=== PATIENT | male | born 1965 | race Caucasian/White ===

== ENCOUNTER → 2017-03-28 | Outpatient (CLI) | payer BC ==
[~2017-03-28] MED LIST: AMLO10TA2 PO; LISI40TA PO
[2017-03-28 08:59] LABS: ASPARTATE AMINO TRANSFERASE 16 U/L (15-37); BLOOD UREA NITROGEN 18 mg/dL (7-18)
== END | disposition home or self-care (01) ==
LOC: STAR 07:31
PROVIDERS: ATTEND Surgery
DX: Z01.818 Encounter for other preprocedural examination (principal); I51.7 Cardiomegaly; R00.1 Bradycardia, unspecified
CPT/HCPCS: 36415; 80053; 82378; 85025; 93005

== ENCOUNTER → 2017-04-09 | Outpatient (CLI) | payer BC ==
[~2017-04-09] MED LIST changes: +OXYC-302 PO
== END | disposition home or self-care (01) ==
LOC: WOUND 08:09
PROVIDERS: ATTEND Internal Medicine
DX: T81.89XD Other complications of procedures, not elsewhere classified, subsequent encounter (principal); E78.5 Hyperlipidemia, unspecified; E78.00 Pure hypercholesterolemia, unspecified; I51.7 Cardiomegaly; I10 Essential (primary) hypertension; Z87.891 Personal history of nicotine dependence; Z85.048 Personal history of other malignant neoplasm of rectum, rectosigmoid junction, and anus; Z72.89 Other problems related to lifestyle; Y83.8 Other surgical procedures as the cause of abnormal reaction of the patient, or of later complication, without mention of misadventure at the time of the procedure
CPT/HCPCS: 99214

== ENCOUNTER 2017-04-11 07:30 | Inpatient (IN) | payer BC, OTHER ==
[~2017-04-11] VITALS: Ht 185.4 cm; Wt 83.9 kg
[~2017-04-11 07:30] MED LIST changes: -OXYC-302 PO
[2017-04-11] MEDS ORDERED: LACTATED RINGERS 1,000 ML IV SCH (07:58)
[2017-04-11] MEDS ORDERED: FENTANYL PF 100 MCG/2ML ONE ×4 (10:25→14:24)
[2017-04-11] MEDS ORDERED: MIDAZOLAM 1 MG/ML, 2ML ONE (10:25)
[2017-04-11] MEDS ORDERED: cloniDINE/PF 100 MCG/ML, 10 ML ONE (10:30)
[2017-04-11] MEDS ORDERED: BUPIVACAINE/PF 0.5% ONE (10:35)
[2017-04-11] MEDS ORDERED: INDOCYANINE GREEN 25 MG VIAL ONE (10:59)
[2017-04-11] MEDS ORDERED: DEXAMETHASONE 4 MG/ML, 5ML ONE (11:31)
[2017-04-11] MEDS ORDERED: ROCURONIUM 10 MG/ML ONE ×2 (11:31)
[2017-04-11] MEDS ORDERED: ONDANSETRON 2MG/ML, 2ML ONE ×2 (11:31→15:20)
[2017-04-11] MEDS ORDERED: CEFOTETAN 2 GM ONE (11:31)
[2017-04-11] MEDS ORDERED: PROPOFOL 10 MG/ML, 20ML ONE (11:31)
[2017-04-11] MEDS ORDERED: ONDANSETRON 2MG/ML, 2ML IVPush PRN (13:30)
[2017-04-11] MEDS ORDERED: ACETAMINOPHEN 325 MG TABLET PO PRN (13:30)
[2017-04-11] MEDS ORDERED: MEPERIDINE/PF 25MG/0.5ML IVPush PRN (13:30)
[2017-04-11] MEDS ORDERED: hydrALAzine 20 MG/ML, 1ML IV PRN (13:30)
[2017-04-11] MEDS ORDERED: OXYcodone 5 MG/5 ML ORAL.SOL UDC PO PRN (13:30)
[2017-04-11] MEDS ORDERED: LABETALOL 5MG/ML, 20ML IV PRN (13:30)
[2017-04-11] MEDS ORDERED: PROMETHAZINE 25 MG/ML, 1ML IV PRN (13:30)
[2017-04-11] MEDS ORDERED: HYDROmorphone 1 MG/ML, 1ML ONE ×2 (14:24→15:20)
[2017-04-11] MEDS: FENTANYL PF 100 MCG/2ML IV PRN ×2 (14:25→14:40)
[2017-04-11] MEDS: HYDROmorphone 1 MG/ML, 1ML IV PRN ×5 (14:35→18:17)
[2017-04-11] MEDS ORDERED: ACETAMINOPHEN 500 MG TABLET PO PRN (16:30)
[2017-04-11] MEDS ORDERED: DIPHENHYDRAMINE 25 MG CAPSULE PO PRN (16:30)
[2017-04-11] MEDS ORDERED: D5%-0.45% NACL 1,000 ML IV SCH (16:30)
[2017-04-11] MEDS ORDERED: LORazepam 1MG TABLET PO PRN (16:30)
[2017-04-11] MEDS ORDERED: LORazepam 2 MG/ML, 1ML IV PRN (16:30)
[2017-04-11] MEDS ORDERED: DIPHENHYDRAMINE 50 MG/ML, 1ML IV PRN (16:30)
[2017-04-11] MEDS ORDERED: ONDANSETRON 2MG/ML, 2ML IV PRN (16:30)
[2017-04-11] MEDS: OXYcodone 5 MG/5 ML ORAL.SOL UDC PO PRN ×2 (19:38→20:38)
[2017-04-11] MEDS: FAMOTIDINE 20 MG TABLET PO SCH (19:38)
[2017-04-11 19:59] VITALS: BP 139/89
[2017-04-11] MEDS: IBUPROFEN 600 MG TABLET PO SCH (20:39)
[2017-04-11] MEDS: CEFOTETAN PMX 2GM/50ML 50 ML IVPB SCH (23:50)
[2017-04-11] MEDS: ACETAMINOPHEN 500 MG TABLET PO SCH (23:50)
[2017-04-12 00:02] VITALS: BP 140/83
[2017-04-12] MEDS: OXYcodone 5 MG/5 ML ORAL.SOL UDC PO PRN ×4 (02:45→18:22)
[2017-04-12 04:10] VITALS: BP 138/87
[2017-04-12 05:40] LABS: HEMATOCRIT 44.9 % (39.2-51.8); HEMOGLOBIN 15.2 g/dL (13.7-18.0); WHITE BLOOD COUNT 17.1 x10^3/uL (3.4-10)
[2017-04-12 05:46] LABS: BLOOD UREA NITROGEN 18 mg/dL (7-18)
[2017-04-12] MEDS: ACETAMINOPHEN 500 MG TABLET PO SCH ×3 (05:46→17:24)
[2017-04-12 07:14] VITALS: BP 153/86
[2017-04-12] MEDS: FAMOTIDINE 20 MG TABLET PO SCH ×2 (09:01→21:06)
[2017-04-12] MEDS: ENOXAPARIN 40 MG/0.4 ML SQ SCH (09:01)
[2017-04-12] MEDS: IBUPROFEN 600 MG TABLET PO SCH ×3 (09:01→21:06)
[2017-04-12] MEDS: CEFOTETAN PMX 2GM/50ML 50 ML IVPB SCH (11:20)
[2017-04-12 14:35] VITALS: BP 131/75
[2017-04-12 19:57] VITALS: BP 142/78
[2017-04-13] MEDS: ACETAMINOPHEN 500 MG TABLET PO SCH ×2 (00:04→06:05)
[2017-04-13 01:42] VITALS: BP 141/68
[2017-04-13] MEDS: OXYcodone 5 MG/5 ML ORAL.SOL UDC PO PRN ×2 (03:49→08:13)
[2017-04-13 05:39] LABS: HEMATOCRIT 42.8 % (39.2-51.8); HEMOGLOBIN 14.5 g/dL (13.7-18.0); WHITE BLOOD COUNT 8.4 x10^3/uL (3.4-10)
[2017-04-13 05:43] LABS: BLOOD UREA NITROGEN 17 mg/dL (7-18)
[2017-04-13 07:43] VITALS: BP 144/85
[2017-04-13] MEDS: ENOXAPARIN 40 MG/0.4 ML SQ SCH (08:00)
[2017-04-13] MEDS: FAMOTIDINE 20 MG TABLET PO SCH (08:12)
[2017-04-13] MEDS: IBUPROFEN 600 MG TABLET PO SCH (08:12)
[2017-04-13] MEDS ORDERED: OXYC-302 PO (09:43)
== END 2017-04-13 10:17 | disposition home or self-care (01) | DRG 331 ==
LOC: ORIP 07:40 → 4NOR 16:03
PROVIDERS: ADMIT Surgery; ATTEND Surgery
PROC: 0DBP0ZZ Excision of Rectum, Open Approach (ICD-10-PCS; 2017-04-11)
PROC: 0DTN0ZZ Resection of Sigmoid Colon, Open Approach (ICD-10-PCS; 2017-04-11)
PROC: 8E0W0CZ Robotic Assisted Procedure of Trunk Region, Open Approach (ICD-10-PCS; 2017-04-11)
PROC: 0D1B0Z4 Bypass Ileum to Cutaneous, Open Approach (ICD-10-PCS; principal; 2017-04-11 10:00)
DX: C19 Malignant neoplasm of rectosigmoid junction (principal); I10 Essential (primary) hypertension; E78.00 Pure hypercholesterolemia, unspecified; D72.829 Elevated white blood cell count, unspecified; Z88.8 Allergy status to other drugs, medicaments and biological substances
CPT/HCPCS: 36415; 80048; 82040; 85025; 86850; 86900; 88309; J1100; J1170; J1650; J2250; J2405; J2704; J3010; J3490; J0735; J1200; J7120; S0074

== ENCOUNTER → 2017-11-15 | Outpatient (CLI) | payer BC ==
[~2017-11-15] MED LIST changes: +ACET-1600 PO; +GABA300C10 PO; +ONDA4TAB7 PO; +OXYC-302 PO
[2017-11-15 10:42] LABS: BASOPHILS # (AUTO) 0.03 x10^3/uL (0-0.1); BASOPHILS % (AUTO) 0 % (0-1); EOSINOPHILS # (AUTO) 0.11 x10^3/uL (0-0.4); EOSINOPHILS % (AUTO) 2 % (1-7); LYMPHOCYTES # (AUTO) 0.91 x10^3/uL (1-3.4); LYMPHOCYTES % (AUTO) 14 % (22-44); MD NO; MEAN CORPUSCULAR HEMOGLOBIN 34.6 pg (27.5-34.5); MEAN CORPUSCULAR HGB CONC 34.2 g/dL (33.2-36.2); MEAN PLATELET VOLUME 7.2 fL (7.4-10.4); MONOCYTES # (AUTO) 0.47 x10^3/uL (0.2-0.8); MONOCYTES % (AUTO) 7 % (2-9); NEUTROPHILS # (AUTO) 5.12 x10^3/uL (1.8-6.8); NEUTROPHILS % (AUTO) 77 % (42-75); PLATELET COUNT 380 x10^3/uL (130-400); RED BLOOD COUNT 4.51 x10^6/uL (4.38-5.82); RED CELL DISTRIBUTION WIDTH 14.2 % (9.4-14.8)
[2017-11-15 11:03] LABS: ALANINE AMINOTRANSFERASE 29 U/L (12-78); ANION GAP 7 mmol/L (5-15); CALCIUM 9.2 mg/dL (8.5-10.1); CHLORIDE 106 mmol/L (98-107); CREATININE 1.03 mg/dL (0.7-1.3)
[2017-11-15 11:05] LABS: ALKALINE PHOSPHATASE 142 U/L (45-117); BILIRUBIN,TOTAL 1.4 mg/dL (0.2-1.0); TOTAL PROTEIN 7.8 g/dL (6.4-8.2)
== END | disposition home or self-care (01) ==
LOC: STAR 08:19
PROVIDERS: ATTEND Surgery
DX: Z01.818 Encounter for other preprocedural examination (principal); R00.1 Bradycardia, unspecified
CPT/HCPCS: 36415; 80053; 85025; 93005

== ENCOUNTER → 2017-11-15 | Outpatient (CLI) | payer BC | END | disposition home or self-care (01) | LOC: RAD 08:17 | PROVIDERS: ATTEND Surgery | DX: Z01.818 Encounter for other preprocedural examination (principal); Z93.2 Ileostomy status | CPT/HCPCS: 74270 ==

== ENCOUNTER 2017-11-20 07:53 | Inpatient (IN) | payer BC ==
[2017-11-15 10:07] VITALS: BP 123/84
[~2017-11-20] VITALS: Ht 182.9 cm; Wt 88.0 kg
[2017-11-20] MEDS ORDERED: LACTATED RINGERS 1,000 ML IV SCH (08:15)
[2017-11-20] MEDS ORDERED: ACETAMINOPHEN 500 MG TABLET ONE (08:24)
[2017-11-20] MEDS ORDERED: GABAPENTIN 300 MG CAPSULE ONE (08:25)
[2017-11-20] MEDS ORDERED: ACETAMINOPHEN 500 MG TABLET PO ONE (08:30)
[2017-11-20] MEDS ORDERED: GABAPENTIN 300 MG CAPSULE PO ONE (08:30)
[2017-11-20] MEDS ORDERED: cloniDINE/PF 100 MCG/ML, 10 ML ONE (11:45)
[2017-11-20] MEDS ORDERED: SUGAMMADEX 200 MG/2 ML IVPush ONE (12:00)
[2017-11-20] MEDS ORDERED: CEFAZOLIN 1,000 MG ONE (12:12)
[2017-11-20] MEDS ORDERED: PROPOFOL 10 MG/ML, 20ML ONE (12:12)
[2017-11-20] MEDS ORDERED: NEOSTIGMINE 1 MG/ML, 10ML ONE (12:12)
[2017-11-20] MEDS ORDERED: GLYCOPYRROLATE 0.2MG/1ML, 5ML ONE (12:12)
[2017-11-20] MEDS ORDERED: ROCURONIUM 10 MG/ML,10ML ONE (12:12)
[2017-11-20] MEDS ORDERED: SUCCINYLCHOLINE 20 MG/ML, 10ML ONE (12:12)
[2017-11-20] MEDS ORDERED: MIDAZOLAM 1 MG/ML, 2ML ONE (12:12)
[2017-11-20] MEDS ORDERED: DEXAMETHASONE 4 MG/ML, 1ML ONE (12:12)
[2017-11-20] MEDS ORDERED: ONDANSETRON 2MG/ML, 2ML ONE (12:12)
[2017-11-20] MEDS ORDERED: FENTANYL PF 100 MCG/2ML ONE ×2 (12:42→13:27)
[2017-11-20] MEDS ORDERED: KETOROLAC 30 MG/1 ML ONE (13:27)
[2017-11-20] MEDS ORDERED: OXYcodone 5 MG/5 ML ORAL.SOL UDC ONE (13:27)
[2017-11-20] MEDS ORDERED: HYDROmorphone 1 MG/ML, 1ML IV PRN (13:30)
[2017-11-20] MEDS ORDERED: HYDROcodone/APAP 7.5-325MG/15ML UDC PO PRN (13:30)
[2017-11-20] MEDS ORDERED: OXYcodone 5 MG/5 ML ORAL.SOL UDC PO PRN (13:30)
[2017-11-20] MEDS ORDERED: MEPERIDINE/PF 25MG/0.5ML IVPush PRN (13:30)
[2017-11-20] MEDS ORDERED: ACETAMINOPHEN 325 MG TABLET PO PRN (13:30)
[2017-11-20] MEDS ORDERED: MIDAZOLAM 1 MG/ML, 2ML IV PRN (13:30)
[2017-11-20] MEDS ORDERED: KETOROLAC 30 MG/1 ML IV PRN ×2 (13:30)
[2017-11-20] MEDS: FENTANYL PF 100 MCG/2ML IV PRN ×2 (13:36→14:01)
[2017-11-20] MEDS: morphine SULFATE 10 MG/ML, 1ML IV PRN ×2 (13:40→14:07)
[2017-11-20] MEDS ORDERED: morphine SULFATE 10 MG/ML, 1ML ONE (13:45)
[2017-11-20 14:45] VITALS: BP 134/81
[2017-11-20] MEDS ORDERED: LORazepam 1MG TABLET PO PRN (15:30)
[2017-11-20] MEDS ORDERED: LORazepam 2 MG/ML, 1ML IVPush PRN (15:30)
[2017-11-20] MEDS ORDERED: CALCIUM CARBONATE 500 MG TAB.CHEW PO PRN (15:30)
[2017-11-20] MEDS ORDERED: DIPHENHYDRAMINE 25 MG CAPSULE PO PRN (15:30)
[2017-11-20] MEDS ORDERED: DIPHENHYDRAMINE 50 MG/ML, 1ML IVPush PRN (15:30)
[2017-11-20] MEDS ORDERED: DEXAMETHASONE 4 MG/ML, 1ML IVPush PRN (15:30)
[2017-11-20] MEDS ORDERED: SCOPOLAMINE PATCH, 1.5MG PATCH.TD72 TD PRN (15:30)
[2017-11-20] MEDS: D5%-0.45NACL+KCL 20MEQ 1,000 ML IV SCH (15:51)
[2017-11-20] MEDS: ACETAMINOPHEN 500 MG TABLET PO SCH ×2 (15:51→21:13)
[2017-11-20] MEDS: IBUPROFEN 800 MG TABLET PO SCH ×2 (15:51→20:07)
[2017-11-20] MEDS: ONDANSETRON 2MG/ML, 2ML IV PRN (19:20)
[2017-11-20 19:59] VITALS: BP 122/75
[2017-11-20] MEDS: GABAPENTIN 300 MG CAPSULE PO SCH (20:07)
[2017-11-20] MEDS ORDERED: ACETAMINOPHEN 650 MG/20.3 ML UDC ONE (21:10)
[2017-11-21 00:21] VITALS: BP 111/61
[2017-11-21] MEDS: ACETAMINOPHEN 500 MG TABLET PO SCH ×4 (03:27→20:00)
[2017-11-21 04:00] VITALS: BP 114/63
[2017-11-21 04:49] LABS: BASOPHILS # (AUTO) 0.03 x10^3/uL (0-0.1); BASOPHILS % (AUTO) 0 % (0-1); EOSINOPHILS # (AUTO) 0.07 x10^3/uL (0-0.4); EOSINOPHILS % (AUTO) 1 % (1-7); LYMPHOCYTES # (AUTO) 0.66 x10^3/uL (1-3.4); LYMPHOCYTES % (AUTO) 8 % (22-44); MD NO; MEAN CORPUSCULAR HEMOGLOBIN 34.4 pg (27.5-34.5); MEAN CORPUSCULAR VOLUME 101.3 fL (81-97); MEAN PLATELET VOLUME 7.4 fL (7.4-10.4); MONOCYTES # (AUTO) 0.57 x10^3/uL (0.2-0.8); MONOCYTES % (AUTO) 7 % (2-9); NEUTROPHILS # (AUTO) 6.88 x10^3/uL (1.8-6.8); NEUTROPHILS % (AUTO) 84 % (42-75); PLATELET COUNT 360 x10^3/uL (130-400); RED BLOOD COUNT 4.12 x10^6/uL (4.38-5.82); RED CELL DISTRIBUTION WIDTH 13.9 % (9.4-14.8)
[2017-11-21] MEDS: OXYcodone IR 5MG TABLET PO PRN ×2 (04:56→12:42)
[2017-11-21 04:58] LABS: ANION GAP 6 mmol/L (5-15); CALCIUM 8.5 mg/dL (8.5-10.1); CHLORIDE 106 mmol/L (98-107); CREATININE 0.96 mg/dL (0.7-1.3)
[2017-11-21 07:25] VITALS: BP 142/71
[2017-11-21] MEDS: IBUPROFEN 800 MG TABLET PO SCH ×3 (07:47→20:00)
[2017-11-21] MEDS: GABAPENTIN 300 MG CAPSULE PO SCH ×2 (07:48→20:00)
[2017-11-21] MEDS ORDERED: LISINOPRIL 20 MG TABLET PO SCH (09:00)
[2017-11-21] MEDS ORDERED: ENOXAPARIN 40 MG/0.4 ML SQ SCH (09:00)
[2017-11-21] MEDS ORDERED: AMLODIPINE 5 MG TABLET PO SCH (09:00)
[2017-11-21] MEDS: D5%-0.45NACL+KCL 20MEQ 1,000 ML IV SCH ×2 (11:11→20:01)
[2017-11-21 12:39] VITALS: BP 116/68
[2017-11-21 19:05] VITALS: BP 92/54
[2017-11-22] MEDS: OXYcodone IR 5MG TABLET PO PRN ×2 (01:24→08:49)
[2017-11-22 01:27] VITALS: BP 122/83
[2017-11-22] MEDS: ACETAMINOPHEN 500 MG TABLET PO SCH (03:30)
[2017-11-22] MEDS ORDERED: PNEUMOCOCCAL 23 VACCINE IM-VACC ONE (04:00)
[2017-11-22 05:06] LABS: BASOPHILS # (AUTO) 0.02 x10^3/uL (0-0.1); BASOPHILS % (AUTO) 0 % (0-1); EOSINOPHILS # (AUTO) 0.07 x10^3/uL (0-0.4); EOSINOPHILS % (AUTO) 1 % (1-7); LYMPHOCYTES % (AUTO) 12 % (22-44); MD NO; MEAN CORPUSCULAR HEMOGLOBIN 34.6 pg (27.5-34.5); MEAN CORPUSCULAR VOLUME 101.7 fL (81-97); MEAN PLATELET VOLUME 7.4 fL (7.4-10.4); MONOCYTES % (AUTO) 9 % (2-9); NEUTROPHILS # (AUTO) 5.03 x10^3/uL (1.8-6.8); NEUTROPHILS % (AUTO) 77 % (42-75); PLATELET COUNT 359 x10^3/uL (130-400); RED BLOOD COUNT 4.16 x10^6/uL (4.38-5.82); RED CELL DISTRIBUTION WIDTH 13.8 % (9.4-14.8)
[2017-11-22 05:08] LABS: ANION GAP 7 mmol/L (5-15); CALCIUM 8.9 mg/dL (8.5-10.1); CHLORIDE 106 mmol/L (98-107)
[2017-11-22 05:10] LABS: CREATININE 1.05 mg/dL (0.7-1.3)
[2017-11-22] MEDS: IBUPROFEN 800 MG TABLET PO SCH (07:41)
[2017-11-22] MEDS: ONDANSETRON 2MG/ML, 2ML IV PRN (07:41)
[2017-11-22 07:47] VITALS: BP 125/67
[2017-11-22] MEDS ORDERED: OXYC-302 PO (08:30)
== END 2017-11-22 08:55 | disposition home or self-care (01) | DRG 331 ==
LOC: ORIP 07:53 → 4NOR 14:37
PROVIDERS: ADMIT Surgery; ATTEND Surgery
PROC: 0DBB0ZZ Excision of Ileum, Open Approach (ICD-10-PCS; principal; 2017-11-20 10:30)
DX: Z43.2 Encounter for attention to ileostomy (principal)
CPT/HCPCS: 36415; 80048; 85025; 86850; 86900; 88304; 90732; J0690; J1100; J1650; J1885; J2250; J2405; J2704; J2710; J3010; J3490; J0330; J0735; J2270; J3480; J7120

== ENCOUNTER 2020-02-11 12:22 | Outpatient (CLI) | payer BC ==
[~2020-02-11 12:22] MED LIST changes: -AMLO10TA2 PO; +AMLO10TA8 PO
[2020-02-11] MEDS ORDERED: AMLO10TA8 PO (13:01)
[2020-02-11] MEDS ORDERED: LISI40TA PO (13:01)
[2020-02-11 13:07] LABS: BASOPHILS # (AUTO) 0.02 x10^3/uL (0-0.1); BASOPHILS % (AUTO) 0 % (0-1); EOSINOPHILS # (AUTO) 0.17 x10^3/uL (0-0.4); EOSINOPHILS % (AUTO) 3 % (1-7); LYMPHOCYTES # (AUTO) 1.06 x10^3/uL (1-3.4); LYMPHOCYTES % (AUTO) 18 % (22-44); MD NO; MEAN CORPUSCULAR HEMOGLOBIN 35.3 pg (27.5-34.5); MEAN CORPUSCULAR HGB CONC 34.1 g/dL (33.2-36.2); MEAN CORPUSCULAR VOLUME 103.5 fL (81-97); MEAN PLATELET VOLUME 7.6 fL (7.4-10.4); MONOCYTES # (AUTO) 0.44 x10^3/uL (0.2-0.8); MONOCYTES % (AUTO) 7 % (2-9); NEUTROPHILS # (AUTO) 4.28 x10^3/uL (1.8-6.8); NEUTROPHILS % (AUTO) 72 % (42-75); PLATELET COUNT 397 x10^3/uL (130-400); RED BLOOD COUNT 4.38 x10^6/uL (4.38-5.82); RED CELL DISTRIBUTION WIDTH 14.3 % (9.4-14.8)
[2020-02-11 13:17] LABS: ALANINE AMINOTRANSFERASE 19 U/L (12-78); ALBUMIN 3.9 g/dL (3.4-5.0); ANION GAP 5 mmol/L (5-15); CHLORIDE 107 mmol/L (98-107)
[2020-02-11 13:19] LABS: ALKALINE PHOSPHATASE 88 U/L (45-117); BILIRUBIN,TOTAL 1.5 mg/dL (0.2-1.0); TOTAL PROTEIN 7.2 g/dL (6.4-8.2)
== END 2020-02-11 23:59 | disposition home or self-care (01) ==
LOC: STAR 12:22
PROVIDERS: ATTEND Surgery
DX: Z01.818 Encounter for other preprocedural examination (principal)
CPT/HCPCS: 36415; 80053; 85025

== ENCOUNTER 2020-02-17 06:34 | Day surgery (SDC) | payer BC ==
[~2020-02-17] VITALS: Ht 185.4 cm; Wt 84.1 kg
[2020-02-17] MEDS ORDERED: BUPIVACAINE/PF 0.5% ONE (07:01)
[2020-02-17] MEDS ORDERED: LACTATED RINGERS 1,000 ML IV SCH (07:02)
[2020-02-17] MEDS ORDERED: LIDOCAINE-MPF 1%, 2ML INFIL ONE (07:30)
[2020-02-17] MEDS ORDERED: CHLORHEXIDINE 15 ML UDC MM ONE (07:30)
[2020-02-17 07:35] VITALS: BP 151/91
[2020-02-17] MEDS ORDERED: FENTANYL PF 250 MCG/5ML ONE (08:14)
[2020-02-17] MEDS ORDERED: MIDAZOLAM 1 MG/ML, 2ML ONE (08:14)
[2020-02-17] MEDS ORDERED: LABETALOL 5MG/ML, 20ML IV PRN (08:30)
[2020-02-17] MEDS ORDERED: PROMETHAZINE 25 MG/ML, 1ML IVPush PRN (08:30)
[2020-02-17] MEDS ORDERED: MEPERIDINE/PF 25MG/0.5ML IVPush PRN (08:30)
[2020-02-17] MEDS ORDERED: PROMETHAZINE 25 MG SUPP PR PRN (08:30)
[2020-02-17] MEDS ORDERED: HYDROmorphone 1 MG/ML, 1ML INJ IVPush PRN (08:30)
[2020-02-17] MEDS ORDERED: FENTANYL PF 100 MCG/2ML IV PRN (08:30)
[2020-02-17] MEDS ORDERED: ACETAMINOPHEN 325 MG TABLET PO PRN (08:30)
[2020-02-17] MEDS ORDERED: hydrALAzine 20 MG/ML, 1ML IV PRN (08:30)
[2020-02-17] MEDS ORDERED: LORazepam 2 MG/ML, 1ML IVPush PRN (08:30)
[2020-02-17] MEDS ORDERED: ONDANSETRON 2MG/ML, 2ML IVPush PRN (08:30)
[2020-02-17] MEDS ORDERED: CEFAZOLIN 1,000 MG ONE (10:05)
[2020-02-17] MEDS ORDERED: NEOSTIGMINE 1 MG/ML, 10ML ONE (10:05)
[2020-02-17] MEDS ORDERED: PROPOFOL 10 MG/ML, 20ML ONE (10:05)
[2020-02-17] MEDS ORDERED: DEXAMETHASONE 4 MG/ML, 1ML ONE (10:05)
[2020-02-17] MEDS ORDERED: SUCCINYLCHOLINE 20 MG/ML, 10ML ONE (10:05)
[2020-02-17] MEDS ORDERED: GLYCOPYRROLATE 0.2MG/1ML, 5ML ONE (10:05)
[2020-02-17] MEDS ORDERED: ROCURONIUM 10MG/ML,5ML ONE (10:05)
[2020-02-17] MEDS ORDERED: ONDANSETRON 2MG/ML, 2ML ONE (10:05)
[2020-02-17] MEDS ORDERED: PROMETHAZINE 25 MG/ML, 1ML ONE (10:10)
[2020-02-17] MEDS ORDERED: FENTANYL PF 100 MCG/2ML ONE (10:32)
[2020-02-17] MEDS: OXYcodone 5 MG/5 ML ORAL.SOL UDC PO PRN ×2 (10:50→12:05)
[2020-02-17] MEDS ORDERED: ACETAMINOPHEN 650 MG/20.3 ML UDC ONE (10:51)
[2020-02-17] MEDS ORDERED: OXYcodone 5 MG/5 ML ORAL.SOL UDC ONE (10:51)
[2020-02-17] MEDS ORDERED: KETOROLAC 30 MG/1 ML ONE (11:56)
[2020-02-17] MEDS ORDERED: KETOROLAC 30 MG/1 ML IVPush SCH (12:00)
== END 2020-02-17 12:45 | disposition home or self-care (01) ==
LOC: OUT 06:34
PROVIDERS: ATTEND Surgery
DX: K43.2 Incisional hernia without obstruction or gangrene (principal); Z11.59 Encounter for screening for other viral diseases; I10 Essential (primary) hypertension; Z98.890 Other specified postprocedural states
CPT/HCPCS: 36415; 49654; 87635; C1781; J0330; J0690; J1100; J1885; J2250; J2405; J2550; J2704; J2710; J3010; J7120; S2900